=== PATIENT | male | born 1930 | race Caucasian/White ===

== ENCOUNTER 2016-09-22 18:29 | Day surgery (SDC) | payer MEDICARE ==
--- NOTE | ~2016-09-22 | OP ---
Record Of Operation [facility] [address] [place]. [address] NAME: YOUSUF HAILE : 32 STATUS : [facility]#: [id number] AGE: 86 ADM/REG DATE : 09/22/16 MR#: [id number] REPORT SERV DATE: 09/26/16 DICTATED BY: DIAN MACIAS DATE: 09/26/16 REPORT STATUS : Draft TRANSCRIBED BY: MODL DATE: 09/26/16 DATE OF PROCEDURE: 09/22/2016 PREOPERATIVE DIAGNOSES: 1. End-stage renal disease, on hemodialysis. 2. Thrombosed left upper extremity arteriovenous graft. POSTOPERATIVE DIAGNOSES: 1. End-stage renal disease, on hemodialysis. 2. Thrombosed left upper extremity arteriovenous graft. PROCEDURES: 1. Open thrombectomy, left upper extremity arteriovenous graft. 2. Left upper extremity AV graft. 3. Open angioplasty of the venous outflow of the AV graft. SURGEON: Dian Macias M.D. ANESTHESIA: Local with MAC. CODING ASSISTANT: Markus. CONTRAST: 25 mL. ESTIMATED BLOOD LOSS: 75 mL. SPECIMEN: Thrombus. COMPLICATIONS: None. INDICATION: Mr. Haile is a pleasant 86-year-old man with end-stage renal disease, on hemodialysis via left upper extremity arteriovenous graft. This has apparently occluded. He is brought for urgent thrombectomy and intervention as needed. DETAILS OF PROCEDURE: After informed consent was obtained, the patient was brought to the endovascular suite and placed in supine position. After administration of the anesthesia, he was prepped and draped in the usual sterile fashion. A time-out was performed. I commenced the procedure with local anesthesia in the skin just cephalad to the arterial anastomosis of the AV graft. I cut down the graft and exposed it proximally and distally encircled with vessel loops. I made a transverse graftotomy. I passed a 4 Stuart towards the venous end and then extracted fresh thrombus. I then placed a 7-Icelandic sheath towards the venous end. I performed contrast injection, which showed the graft itself to be patent. There was moderate stenosis within the graft. However, there was high-grade stenosis at the venous anastomosis. There was also stenosis just cephalad to that. After that, I placed a V18 wire. I performed cutting balloon angioplasty with 8 mm cutting balloon. I then performed balloon angioplasty with a 10 mm x 16 mm Animas balloon. This resulted in wide Record Of Operation [facility] [address] [place]. [address] NAME: YOUSUF HAILE : 32 STATUS : [facility] PAT#: [id number] AGE: 86 ADM/REG DATE : 09/22/16 MR#: [id number] REPORT SERV DATE: 09/26/16 DICTATED BY: DIAN MACIAS. DATE: 09/26/16 REPORT STATUS : Draft TRANSCRIBED BY: WOODROW DATE: 09/26/16 patency of the venous anastomosis as well as the washoe vein cephalad to that. After that, I performed thrombectomy of the arterial end. Thrombus was extracted. There was a strongly pulsatile arterial flow from the arterial end. As a result, after the graft was clamped, I closed the graftotomy with 5-0 Prolene. I then restored flow to the graft first and then to the hand after that. There was a palpable thrill in the upper arm at the venous anastomosis. The graft was obviously patent. There was good flow distally with palpable radial pulse. After that, we ensured hemostasis. The wound was closed with 3-0 Vicryl for the deep layer with running 4-0 Monocryl in subcuticular fashion for the skin. Dermabond was applied. The patient tolerated the procedure well with no complications. DAYNA/WOODROW Dian Macias M.D. / [id number] CC: Sera Goldsmith M.D.
[~2016-09-22 18:29] MED LIST: ATV1 PO; AUG500 PO; DEMA20 PO; FLAG500TAB PO; ISOPTIN SR180 MG PO; JANTOVEN1 MG PO; JANTOVEN3 MG PO; LEVAQUIN5T PO; METAMUCIL CAN7 OZ PO; MULTIPLE VIT PO; SIN25 PO; V180SR PO; VERELAN180 MG PO
[2016-09-22 19:20] LABS: BASOPHILS 0.3 %; BASOPHILS ABSOLUTE 0.02 10/3/uL (0.0-0.16); EOSINOPHILS 5.5 %; EOSINOPHILS ABSOLUTE 0.34 10/3/uL (0.0-0.53); HEMOGLOBIN 10.9 g/dL (13.6-17.8); IMMATURE GRANULOCYTES 0.3 %; IMMATURE GRANULOCYTES ABSOLUTE 0.02 10/3/uL (0.0-0.11); LYMPHOCYTES 17.5 %; LYMPHOCYTES ABSOLUTE 1.08 10/3/uL (0.67-4.30); MEAN CORPUS HGB CONC 34.1 g/dL (32.0-36.0); MEAN CORPUSCULAR HEMOGLOB 31.2 pg (26.0-34.0); MEAN CORPUSCULAR VOLUME 91.7 fL (80-100); MONOCYTES 8.3 %; MONOCYTES ABSOLUTE 0.51 10/3/uL (0.21-1.20); NEUTROPHILS 68.1 %; PLATELET COUNT 150 10/3/uL (150-400); RBC DISTRIBUTION WIDTH 13.5 % (12.0-16.0); RED CELL COUNT 3.49 10/6/uL (4.7-6.1); WHITE BLOOD CELLS 6.2 10/3/uL (4.5-10.5)
[2016-09-22 19:23] LABS: MANUAL DIFF NO %
[2016-09-22 19:32] LABS: CHLORIDE, SERUM 98 MMOL/L (96-112); CO2 (CARBON DIOXIDE) 25 MMOL/L (24-34); GFR AFRICAN AMERICAN 6 ML/MIN (>=60); GFR NON AFRICAN AMERICAN 5 ML/MIN (>=60); GLUCOSE, SERUM 90 MG/DL (60-99); INTERNATIONAL NORMAL RATI 1.1 UNITS (-); POTASSIUM, SERUM 4.1 MMOL/L (3.5-5.3); SODIUM, SERUM 139 MMOL/L (135-148)
[2016-09-22 19:34] LABS: PROTIME (NOT ORD) 14.5 SEC (12.0-14.5)
[2016-09-22 19:58] LABS: BUN (BLOOD UREA NITROGEN) 113 MG/DL (6-23); CREATININE 8.78 MG/DL (0.70-1.30)
[2017-03-30] MEDS ORDERED: SIN25 PO (13:06)
[2017-03-30] MEDS ORDERED: ISOPTIN SR180 MG PO (13:06)
[2017-03-30] MEDS ORDERED: JANTOVEN2 MG PO (13:06)
[2017-03-30] MEDS ORDERED: DEPAK250ER PO (13:07)
[2017-03-30] MEDS ORDERED: MELATONIN10 M2 PO (13:07)
[2017-03-30] MEDS ORDERED: EXELON3 PO (13:07)
[2017-03-30] MEDS ORDERED: T PO (13:08)
== END 2016-09-23 01:28 ==
LOC: SDC 18:29
PROVIDERS: Anesthesiology; Surgery
PROC: 05CF0ZZ Extirpation of Matter from Left Cephalic Vein, Open Approach (ICD-10-PCS; principal; 2016-09-22 18:30)
DX: T82.868A Thrombosis due to vascular prosthetic devices, implants and grafts, initial encounter (principal); N18.6 End stage renal disease; G47.33 Obstructive sleep apnea (adult) (pediatric); I48.91 Unspecified atrial fibrillation; Z88.2 Allergy status to sulfonamides; Z88.0 Allergy status to penicillin; Z88.8 Allergy status to other drugs, medicaments and biological substances; Z79.899 Other long term (current) drug therapy
CPT/HCPCS: 36831; 80048; 85025; 85610; 88304; C1725; C1757; C1769; C1894; J0690; J1200; J2250; J3010; Q9967

== ENCOUNTER 2016-09-26 11:52 | Day surgery (SDC) | payer MEDICARE ==
--- NOTE | ~2016-09-26 | OP ---
Record Of Operation [facility] [address] [place]. [address] NAME: YOUSUF QUINTANILLA : 32 STATUS : [facility]#: [id number] AGE: 86 ADM/REG DATE : 09/26/16 MR#: [id number] REPORT SERV DATE: 09/27/16 DICTATED BY: KANNAN HARPER JR. 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 OPERATION: Open thrombectomy of the same, fistulogram of arm, left axillary subclavian vein and innominate vein, dilation of all segments using 8 x 100 balloon. SURGEON: Kannan Harper M.D. RESIDENT SURGEON: Judi Tinoco M.D. HISTORY: This is an 86-year-old white male, who had a graft placed by [place] in 2013. It was cleaned out four days ago by Dr. Macias. It had recurrent thrombosis. The patient had previously been on Coumadin for atrial fibrillation and it is not noted at the time of this admission. DESCRIPTION OF PROCEDURE: The patient was placed on the operating room table. Left arm was prepped and draped in the usual sterile manner. The stitches were then removed from the previous incision close to the arterial anastomosis. The graft was easily encircled with a vessel loop. The suture line was then opened and that was closed four days ago. The graft was obviously thrombosed. 3000 units of heparin were given. A Stuart catheter was sent through the venous end of the graft four times removing the clot. I then inserted a large sheath and did a fistulogram. There were several areas that appeared to be narrowed. We then dilated the entire graft in the arm going toward the shoulder, the left axillary vein, the left subclavian vein, the left innominate vein using 8 x 100 balloon. All areas seem to dilate nicely. There were no areas that were seen with a definite stricture. We then ran the Stuart catheter back up into the segment just mentioned. It seemed to hang up at the venous anastomosis. We then inserted another balloon and dilated this one more time. The followup fistulogram looked good. We then removed clot from the arterial end of the graft. The hole in the clivus was then sewn up with a running 5-0 Prolene suture. Upon release of clamps, there was excellent flow. The subcutaneous tissue was closed with 3-0 Vicryl. The skin was closed with 4-0 Monocryl. The patient tolerated the procedure well. Taken back to recovery room in fair condition. There were no intraoperative complications. ESTIMATED BLOOD LOSS: 100 mL. The patient will be restarted on Coumadin in the recovery room. DF/SANTOSHL Record Of Operation [address] [address] NAME: YOUSUF QUINTANILLA : 32 STATUS : [facility]#: [id number] AGE: 86 ADM/REG DATE : 09/26/16 MR#: [id number] REPORT SERV DATE: 09/27/16 DICTATED BY: KANNAN HARPER JR. DATE: 09/26/16 REPORT STATUS : Draft TRANSCRIBED BY: WOODROW DATE: 09/26/16 Kannan Harper Jr., M.D. / [id number] CC: Kannan Harper Jr., M.D.
[2016-09-26 13:10] LABS: CALCIUM, SERUM 9.2 MG/DL (8.5-10.4); CHLORIDE, SERUM 97 MMOL/L (96-112); CO2 (CARBON DIOXIDE) 25 MMOL/L (24-34); GFR AFRICAN AMERICAN 7 ML/MIN (>=60); GFR NON AFRICAN AMERICAN 6 ML/MIN (>=60); GLUCOSE, SERUM 78 MG/DL (60-99); POTASSIUM, SERUM 4.7 MMOL/L (3.5-5.3); SODIUM, SERUM 138 MMOL/L (135-148)
[2016-09-26 13:11] LABS: BUN (BLOOD UREA NITROGEN) 84 MG/DL (6-23); CREATININE 7.42 MG/DL (0.70-1.30); INTERNATIONAL NORMAL RATI 1.1 UNITS (-); PROTIME (NOT ORD) 13.8 SEC (12.0-14.5)
[2017-03-30] MEDS ORDERED: JANTOVEN2 MG PO (13:06)
[2017-03-30] MEDS ORDERED: ISOPTIN SR180 MG PO (13:06)
[2017-03-30] MEDS ORDERED: SIN25 PO (13:06)
[2017-03-30] MEDS ORDERED: EXELON3 PO (13:07)
[2017-03-30] MEDS ORDERED: DEPAK250ER PO (13:07)
[2017-03-30] MEDS ORDERED: MELATONIN10 M2 PO (13:07)
[2017-03-30] MEDS ORDERED: T PO (13:08)
== END 2016-09-26 18:45 | disposition home or self-care (01) ==
LOC: SDC 11:52
PROVIDERS: Surgery
PROC: 03CY3ZZ Extirpation of Matter from Upper Artery, Percutaneous Approach (ICD-10-PCS; principal; 2016-09-26 14:00)
DX: T82.868A Thrombosis due to vascular prosthetic devices, implants and grafts, initial encounter (principal); G20 Parkinson's disease; I13.11 Hypertensive heart and chronic kidney disease without heart failure, with stage 5 chronic kidney disease, or end stage renal disease; N18.6 End stage renal disease; F03.90 Unspecified dementia, unspecified severity, without behavioral disturbance, psychotic disturbance, mood disturbance, and anxiety; G47.33 Obstructive sleep apnea (adult) (pediatric); Z88.1 Allergy status to other antibiotic agents; Z88.2 Allergy status to sulfonamides; Z91.041 Radiographic dye allergy status; Z88.8 Allergy status to other drugs, medicaments and biological substances; Z99.2 Dependence on renal dialysis; Z87.891 Personal history of nicotine dependence; Z79.01 Long term (current) use of anticoagulants; Z79.899 Other long term (current) drug therapy
CPT/HCPCS: 36831; 80048; 85610; A9270-GY; C1725; C1757; C1769; C1894; J0690; J2930; J3010; Q9967

== ENCOUNTER 2017-01-05 11:01 | Emergency (ER) | payer MEDICARE ==
[2017-01-05 11:55] LABS: INTERNATIONAL NORMAL RATI 1.3 UNITS (-)
[2017-01-05 11:56] LABS: PROTIME (NOT ORD) 16.1 SEC (12.0-14.5)
[2017-01-05 12:03] LABS: A/G RATIO 0.9 (0.7-1.9); ALBUMIN 3.2 G/DL (3.5-5.0); CALCIUM, SERUM 9.1 MG/DL (8.5-10.4); CHLORIDE, SERUM 101 MMOL/L (96-112); CO2 (CARBON DIOXIDE) 27 MMOL/L (24-34); GLOBULIN 3.7 G/DL (2.5-4.1); SODIUM, SERUM 140 MMOL/L (135-148); TOTAL BILIRUBIN 0.4 MG/DL (0-1.2); TOTAL PROTEIN 6.9 G/DL (6.0-8.5)
[2017-01-05 12:05] LABS: ALKALINE PHOSPHATASE 85 U/L (45-117); BUN (BLOOD UREA NITROGEN) 57 MG/DL (6-23); CREATININE 7.98 MG/DL (0.70-1.30); GFR AFRICAN AMERICAN 6 ML/MIN (>=60); GFR NON AFRICAN AMERICAN 6 ML/MIN (>=60); GLUCOSE, SERUM 108 MG/DL (60-99); POTASSIUM, SERUM 4.3 MMOL/L (3.5-5.3); SGOT(AST) 14 U/L (5-40); SGPT(ALT) < 6 U/L (5-65)
[2017-01-05 12:28] LABS: BASOPHILS 0.3 %; BASOPHILS ABSOLUTE 0.02 10/3/uL (0.0-0.16); EOSINOPHILS 1.5 %; EOSINOPHILS ABSOLUTE 0.12 10/3/uL (0.0-0.53); HEMOGLOBIN 11.4 g/dL (13.6-17.8); IMMATURE GRANULOCYTES 0.3 %; IMMATURE GRANULOCYTES ABSOLUTE 0.02 10/3/uL (0.0-0.11); LYMPHOCYTES 5.5 %; LYMPHOCYTES ABSOLUTE 0.43 10/3/uL (0.67-4.30); MEAN CORPUSCULAR HEMOGLOB 28.6 pg (26.0-34.0); MEAN CORPUSCULAR VOLUME 89.2 fL (80-100); MEAN PLATELET VOLUME 11.3 fL (9.2-13.0); MONOCYTES 7.7 %; NEUTROPHILS 84.7 %; PLATELET COUNT 123 10/3/uL (150-400); RBC DISTRIBUTION WIDTH 14.8 % (12.0-16.0); RED CELL COUNT 3.99 10/6/uL (4.7-6.1); WHITE BLOOD CELLS 7.8 10/3/uL (4.5-10.5)
[2017-01-05 12:29] LABS: ER CBC TAT 0 Hrs 49 Mins; HEMATOCRIT 35.6 % (40.0-51.0); MANUAL DIFF NO %
[2017-03-30] MEDS ORDERED: SIN25 PO (13:06)
[2017-03-30] MEDS ORDERED: JANTOVEN2 MG PO (13:06)
[2017-03-30] MEDS ORDERED: ISOPTIN SR180 MG PO (13:06)
[2017-03-30] MEDS ORDERED: DEPAK250ER PO (13:07)
[2017-03-30] MEDS ORDERED: MELATONIN10 M2 PO (13:07)
[2017-03-30] MEDS ORDERED: EXELON3 PO (13:07)
[2017-03-30] MEDS ORDERED: T PO (13:08)
== END 2017-01-05 14:35 | disposition home or self-care (01) ==
LOC: ER 11:01
PROVIDERS: Emergency Medicine
PROC: 0HQ1XZZ Repair Face Skin, External Approach (ICD-10-PCS; principal; 2017-01-05)
DX: S09.90XA Unspecified injury of head, initial encounter (principal); S01.511A Laceration without foreign body of lip, initial encounter; I12.0 Hypertensive chronic kidney disease with stage 5 chronic kidney disease or end stage renal disease; N18.6 End stage renal disease; G47.30 Sleep apnea, unspecified; I48.91 Unspecified atrial fibrillation; Z85.51 Personal history of malignant neoplasm of bladder; Z88.1 Allergy status to other antibiotic agents; Z88.2 Allergy status to sulfonamides; W19.XXXA Unspecified fall, initial encounter
CPT/HCPCS: 70450; 70486; 80053; 85025; 85610; 90471; 90714; 93005; 99284